=== PATIENT | male | born 1970 | race Caucasian/White ===

== ENCOUNTER 2020-03-17 13:54 | Emergency (ER) | payer OTHER ==
--- NOTE | 2020-03-17 14:06 | EDM.PDOC ---
ED HPI GENERAL MEDICAL PROBLEM - General Chief Complaint: Chest Pain Stated Complaint: CHEST PAIN AND HIGH BLOOD PRESSURE Time Seen by Provider: 03/17/20 14:05 - History of Present Illness INITIAL COMMENTS - FREE TEXT/NARRATIVE: 49-year-old male presents the emergency room with a sensation that he is having elevated blood pressure and some chest tightness. Patient has a history of hypertension he used to take lisinopril it is unclear what dose he was taking his blood pressure was doing so good that is regular healthcare provider had him stop taking it. However the last couple of days the patient has felt like his blood pressure was up again and he has a hard time catching his breath. This is what he describes as chest tightness. He does not really have any traditional chest like pain. He has no discomfort into his neck jaw or arms. He has had a stress test that is unremarkable within the last couple of years and had a pretty extensive work-up when he was first diagnosed with hypertension. The patient is traveling through the area and just has not felt right the last couple of days he has been staying fairly active and doing some hiking this does not seem to be aggravating his symptoms. Chest Pain Score (Numeric/FACES): 5 - Related Data Allergies Allergy/AdvReac Type Severity Reaction Status Date / Time No Known Allergies Allergy Verified 03/17/20 14:30 Home Meds: Home Meds Allopurinol [Zyloprim] 100 mg PO DAILY 03/17/20 [History] Metoprolol Tartrate [Lopressor] 25 mg PO Q12HR #20 tab 03/17/20 [Rx] ED ROS GENERAL - Review of Systems Review Of Systems: See Below Constitutional: Reports: No Symptoms HEENT: Reports: No Symptoms Respiratory: Reports: Other (At times he has this vague feeling of not being able to catch his breath) Cardiovascular: Reports: Other (Possible chest pressure he describes it as a vague feeling of not being able to catch his breath) GI/Abdominal: Reports: No Symptoms : Reports: No Symptoms Musculoskeletal: Reports: No Symptoms Skin: Reports: No Symptoms Neurological: Reports: No Symptoms Psychiatric: Reports: No Symptoms Hematologic/Lymphatic: Reports: No Symptoms ED EXAM, GENERAL - Physical Exam Exam: See Below Exam Limited By: No Limitations General Appearance: Alert, No Apparent Distress Head: Atraumatic, Normocephalic Neck: Normal Inspection, Supple, Non-Tender, Full Range of Motion, Other (No JVD). No: Lymphadenopathy (L), Lymphadenopathy (R) Respiratory/Chest: No Respiratory Distress, Lungs Clear, Normal Breath Sounds Cardiovascular: Regular Rate, Rhythm, No Edema, No Murmur, Other (Single PVC heard while auscultating) GI/Abdominal: Normal Bowel Sounds, Soft, Non-Tender #1 Interpretation EKG Date: 03/17/20 Rhythm: NSR [place]: Normal P-Wave: Present QRS: Normal ST-T: Normal (Nondiagnostic ST depression laterally and inferiorly with flattened T waves in V5 and V6) QT: Normal Comparison: Change From Previous EKG (Improved subtle ST changes have resolved with improvement of his blood pressure) EKG Interpretation Comments: Abnormal EKG #2 Interpretation EKG Interpretation Comments: Normal EKG Course - Vital Signs Last Recorded V/S: Last Vital Signs Temp 36.3 C 03/17/20 14:16 Pulse 78 03/17/20 16:00 Resp 20 03/17/20 16:00 BP 158/98 H 03/17/20 16:00 Pulse Ox 97 03/17/20 16:00 - Orders/Labs/Meds Orders: Active Orders 24 hr Category Date Time Status EKG Documentation Completion [RC] ASDIRECTED Care 03/17/20 13:58 Active EKG Documentation Completion [RC] ASDIRECTED Care 03/17/20 17:00 Active EKG 12 Lead [EK] Stat Ther 03/17/20 13:58 Ordered Labs: Laboratory Tests 03/17/20 03/17/20 03/17/20 Range/Units 14:10 14:10 14:10 WBC 6.91 (4.23-9.07) K/mm3 RBC 5.30 (4.63-6.08) M/mm3 Hgb 15.6 (13.7-17.5) gm/dl Hct 46.0 (40.1-51.0) % MCV 86.8 (79.0-92.2) fl MCH 29.4 (25.7-32.2) pg MCHC 33.9 (32.2-35.5) g/dl RDW Std Deviation 42.3 (35.1-43.9) fL Plt Count 242 (163-337) K/mm3 MPV 10.2 (9.4-12.3) fl Neut % (Auto) 75.2 H (34.0-67.9) % Lymph % (Auto) 17.1 L (21.8-53.1) % [place] % (Auto) 6.5 (5.3-12.2) % Eos % (Auto) 0.7 L (0.8-7.0) Baso % (Auto) 0.4 (0.1-1.2) % Neut # (Auto) 5.19 (1.78-5.38) K/mm3 Lymph # (Auto) 1.18 L (1.32-3.57) K/mm3 [place] # (Auto) 0.45 (0.30-0.82) K/mm3 Eos # (Auto) 0.05 (0.04-0.54) K/mm3 Baso # (Auto) 0.03 (0.01-0.08) K/mm3 PT 11.9 (9.7-12.0) SECONDS INR 1.11 APTT 27.8 (21.7-31.4) SECONDS Sodium 142 (136-145) mEq/L Potassium 3.8 (3.5-5.1) mEq/L Chloride 102 (98-107) mEq/L Carbon Dioxide 25 (21-32) mEq/L Anion Gap 18.8 H (5-15) BUN 12 (7-18) mg/dL Creatinine 1.1 (0.7-1.3) mg/dL Est Cr Clr Drug Dosing 72.50 mL/min Estimated GFR (MDRD) > 60 (>60) mL/min BUN/Creatinine Ratio 10.9 L (14-18) Glucose 102 (74-106) mg/dL Calcium 9.3 (8.5-10.1) mg/dL Total Bilirubin 0.5 (0.2-1.0) mg/dL AST 23 (15-37) U/L ALT 27 (16-63) U/L Alkaline Phosphatase 62 (46-116) U/L Troponin I < 0.017 (0.00-0.056) ng/mL Total Protein 8.6 H (6.4-8.2) g/dl Albumin 4.9 (3.4-5.0) g/dl Globulin 3.7 gm/dL Albumin/Globulin Ratio 1.3 (1-2) 01/28/21 Range/Units 16:45 WBC (4.23-9.07) K/mm3 RBC (4.63-6.08) M/mm3 Hgb (13.7-17.5) gm/dl Hct (40.1-51.0) % MCV (79.0-92.2) fl MCH (25.7-32.2) pg MCHC (32.2-35.5) g/dl RDW Std Deviation (35.1-43.9) fL Plt Count (163-337) K/mm3 MPV (9.4-12.3) fl Neut % (Auto) (34.0-67.9) % Lymph % (Auto) (21.8-53.1) % [place] % (Auto) (5.3-12.2) % Eos % (Auto) (0.8-7.0) Baso % (Auto) (0.1-1.2) % Neut # (Auto) (1.78-5.38) K/mm3 Lymph # (Auto) (1.32-3.57) K/mm3 [place] # (Auto) (0.30-0.82) K/mm3 Eos # (Auto) (0.04-0.54) K/mm3 Baso # (Auto) (0.01-0.08) K/mm3 PT (9.7-12.0) SECONDS INR APTT (21.7-31.4) SECONDS Sodium (136-145) mEq/L Potassium (3.5-5.1) mEq/L Chloride (98-107) mEq/L Carbon Dioxide (21-32) mEq/L Anion Gap (5-15) BUN (7-18) mg/dL Creatinine (0.7-1.3) mg/dL Est Cr Clr Drug Dosing mL/min Estimated GFR (MDRD) (>60) mL/min BUN/Creatinine Ratio (14-18) Glucose (74-106) mg/dL Calcium (8.5-10.1) mg/dL Total Bilirubin (0.2-1.0) mg/dL AST (15-37) U/L ALT (16-63) U/L Alkaline Phosphatase (46-116) U/L Troponin I < 0.017 (0.00-0.056) ng/mL Total Protein (6.4-8.2) g/dl Albumin (3.4-5.0) g/dl Globulin gm/dL Albumin/Globulin Ratio (1-2) Meds: Medications Discontinued Medications Generic Name Dose Route Start Last Admin Trade Name Melyssa PRN Reason Stop Dose Admin Aspirin 324 mg 03/17/20 14:30 03/17/20 14:39 Aspirin PO 03/17/20 14:31 324 mg ONETIME ONE Administration Metoprolol Tartrate 5 mg 03/17/20 14:32 03/17/20 14:45 Lopressor IVPUSH 03/17/20 14:33 2.5 mg ONETIME ONE Administration Metoprolol Tartrate 25 mg 03/17/20 15:05 03/17/20 15:13 Lopressor PO 03/17/20 15:06 25 mg ONETIME ONE Administration - Re-Assessments/Exams Free Text/Narrative Re-Assessment/Exam: 03/17/20 15:29 Early after arrival the patient had an EKG which shows some nonspecific ST changes and some isoelectric T wave changes in the lateral leads. Some of the nonspecific ST depression was noted in the lateral leads as well. With the patient's history and the symptoms I went ahead and gave him 2.5 mg of IV Lopressor. It should be noted that the order went in for 5 mg with a verbal understanding with nursing to only give 2.5 and we will see how he does. His pressure came down fairly quickly and his pulse came down from approximately 100 to the 70s. The patient felt much better. His labs of come back his troponin is normal. I will recheck this prior to discharge and I will recheck an EKG prior to discharge because of the patient's history we will go ahead and start him on 25 mg of Lopressor p.o. twice daily patient has follow-up with his regular healthcare provider back in [place] on Saturday. Also the patient should take a baby aspirin daily. 03/17/20 17:44 And troponin is normal still undetectable. Follow-up EKG shows improving ST changes that have completely normalized T waves are no longer flattened in the lateral leads. We will discharge on Lopressor 25 mg twice daily the patient will continue to watch his blood pressure as an outpatient and will follow up with his regular physician on Saturday back home. Departure - Departure Time of Disposition: 17:49 Disposition: Home, Self-Care Clinical Impression: Hypertensive urgency Clinical Impression: (Ruled Out): Severe hypertension - Discharge Information Referrals: PCP,Not In Area [Primary Care Provider] - Forms: ED Department Discharge Additional Instructions: Return to the emergency room with any questions problems or worsening symptoms. You have been started on metoprolol or Lopressor 25 mg twice daily start in the morning. As we discussed use caution take your time getting out of bed and going from the sitting to standing position. Continue to watch your blood pressure check twice daily. Follow-up with your regular physician as scheduled on Saturday. Take a baby aspirin, 81 mg, preferably enteric-coated once daily. Sepsis Event Note (ED) - Focused Exam Vital Signs: Vital Signs Temp Pulse Pulse Resp BP BP Pulse Ox 03/17/20 16:00 78 20 158/98 H 97 03/17/20 15:13 75 169/105 H 03/17/20 15:00 80 19 160/100 H 97 03/17/20 14:45 75 180/100 H 03/17/20 14:16 36.3 C 110 H 13 202/105 H 99 - My Orders Last 24 Hours: My Active Orders 03/17/20 13:58 EKG Documentation Completion [RC] ASDIRECTED EKG 12 Lead [EK] Stat 03/17/20 17:00 EKG Documentation Completion [RC] ASDIRECTED - Assessment/Plan Last 24 Hours: My Active Orders 03/17/20 13:58 EKG Documentation Completion [RC] ASDIRECTED EKG 12 Lead [EK] Stat 03/17/20 17:00 EKG Documentation Completion [RC] ASDIRECTED
[2020-03-17] MEDS ORDERED: Aspirin 81 MG Tab.Chew PO ONE (14:30)
[2020-03-17] MEDS ORDERED: Metoprolol Tartrate 5 MG/5 ML SDV IVPUSH ONE (14:32)
[2020-03-17] MEDS ORDERED: Metoprolol Tartrate 25 MG Tab PO ONE (15:05)
--- NOTE | 2020-03-17 15:08 | CR ---
Chest: Portable view of the chest was obtained. Comparison: No prior chest imaging is available. Heart size is normal. Calcified lymph node is noted at the base of the left hilum. Upper mediastinum is otherwise normal. Bony structures are grossly intact. Impression: 1. Nothing acute is seen on portable chest x-ray. Diagnostic code #2
== END 2020-03-17 18:00 | disposition home or self-care (01) ==
LOC: JD.ED 13:54
DX: I16.0 Hypertensive urgency (principal); I10 Essential (primary) hypertension; Z79.899 Other long term (current) drug therapy
CPT/HCPCS: 36415; 71045; 80053; 84484; 85025; 85610; 85730; 93005; 96374; 99285; A9270; J3490; 93010; 99284